=== PATIENT | male | born 1935 | race Caucasian/White ===

== ENCOUNTER 2023-02-09 18:01 | Outpatient (CLI) | payer OTHER, SELFPAY | END 2023-02-09 18:02 | disposition home or self-care (01) | LOC: AMB 02-10 19:51 | PROVIDERS: Visit Provider Family Medicine | DX: R53.1 Weakness (principal) | CPT/HCPCS: A0998 ==

== ENCOUNTER 2023-02-27 14:45 | Emergency (ER) | payer OTHER, SELFPAY ==
[2023-02-27] VITALS (13 sets, daily range): BP systolic 141–228; BP diastolic 81–96; PULSE 62–72; TEMP 35.9; O2SAT 88–98; BMI 38.7
--- NOTE | 2023-02-27 15:39 | ED.CHESTPAIN ---
HPI - Chest Pain General Chief Complaint: Chest Pain Stated Complaint: Chest pain Time Seen by Provider: 02/27/23 15:17 History of Present Illness HPI narrative: This 87-year-old male comes in reporting some episodes of mild left anterior chest discomfort occurring over the past couple weeks. These episodes last for 10 or 15 minutes and are not related to exertion. He does not report any nausea, vomiting, shortness of breath, or diaphoresis. He does have a history of an open heart surgery that occurred a couple years ago. He did not specify what was done in this surgery. He also has a history of prostate cancer more than 10 years ago and now has recurred a couple years ago with elevated PSA results. He has had another round of radiation therapy. The patient does report some vertigo symptoms and weakness that is chronic over almost a couple decades of time. He is able to get up and ambulate but states if he is down on the floor he would not have enough strength to get to walk. He had been on several medicines related to his heart and recently restarted carvedilol just 2 days ago. He is taking 6.25 mg twice daily. He states that he has felt some brief episodes of lightheadedness unrelated to these episodes of chest discomfort. Related Data Home Medications Medication Instructions Recorded Confirmed amlodipine 5 mg tablet 5 mg PO BID 02/27/23 02/27/23 carvedilol 6.25 mg tablet 6.25 mg PO BID 02/27/23 02/27/23 glimepiride 4 mg tablet 4 mg PO BID 02/27/23 02/27/23 insulin glargine 100 unit/mL (3 unit subcut 02/27/23 mL) subcutaneous pen (Lantus Solostar U-100 Insulin) metformin 500 mg tablet,extended 1,000 mg PO BID 02/27/23 02/27/23 release 24 hr rosuvastatin 10 mg tablet 10 mg PO QPM 02/27/23 02/27/23 Allergies Allergy/AdvReac Type Severity Reaction Status Date / Time No Known Drug Allergies Allergy Verified 02/27/23 14:59 Review of Systems Status of ROS Reports: 10 or more systems reviewed and unremarkable except as noted in History and below Narrative Constitutional: No fevers, no weight gain or loss. Eyes: No discharge. No vision changes. HENT: No congestion, no sore throat, no ear pain. Cardiovascular: Chest discomfort episodes as described above with some associated palpitations. Respiratory: No shortness of breath, no wheezes, no cough. Gastrointestinal: No abdominal pain, no vomiting, no diarrhea. Genitourinary: No dysuria, no hematuria. Musculoskeletal: Normal range of motion. Skin: No rashes, no pruritis. Neurological: No dizziness, weakness, sensory change, speech change. Endo/Heme/Allergies: No bruising or bleeding. No polydipsia. Pysch: no suicidality, no anxiety, no insomnia. All other systems reviewed and are negative. PFSH PFS Social History Smoking Status: Never smoker How often do you have a drink containing alcohol: monthly or less How often do you have six or more drinks on one occasion: Never AUDIT-C Alcohol total score: 1 Non-prescribed substance use: denies use Exam Narrative Exam Narrative: Constitutional: Well-developed, well-nourished, no acute distress. HEENT: Normocephalic, atraumatic. Neck: Normal range of motion. Nontender. Supple. Heart: Regular. No murmurs. Normal rate. Intact distal pulses. Lungs: Clear to auscultation. No chest discomfort. No wheezes, rhonchi, or rales. Abdomen: Normal bowel sounds. Nontender. No rebound tenderness. Genitalia: Deferred. Back: No midline tenderness. Normal range of motion. Extremities: Normal range of motion. No injury. Skin: Intact. No rash. Warm. No erythema or pallor. Neurologic: No altered sensation. No weakness. Alert and oriented. Psychiatric: No suicidality. No anxiety or depression. No insomnia. Nursing notes and vitals signs are reviewed. Const Vital Signs, click to edit/add: Vital Signs - 24 hr 02/27/23 15:00 02/27/23 15:20 02/27/23 15:21 Temperature 96.6 F L Pulse Rate 66 64 Pulse Rate [Pulse Oximeter] 68 Blood Pressure 195/83 H Blood Pressure [Right Upper Arm] 228/93 H Pulse Oximetry 98 97 97 Oxygen Delivery Method Room Air 02/27/23 15:30 02/27/23 15:32 02/27/23 15:33 Temperature Pulse Rate 66 65 64 Pulse Rate [Pulse Oximeter] Blood Pressure 185/81 H Blood Pressure [Right Upper Arm] Pulse Oximetry 97 97 97 Oxygen Delivery Method 02/27/23 16:02 02/27/23 16:04 02/27/23 16:20 Temperature Pulse Rate 65 72 Pulse Rate [Pulse Oximeter] Blood Pressure 193/96 H Blood Pressure [Right Upper Arm] Pulse Oximetry 97 95 Oxygen Delivery Method 02/27/23 16:30 02/27/23 16:45 02/27/23 17:00 Temperature Pulse Rate 64 62 63 Pulse Rate [Pulse Oximeter] Blood Pressure Blood Pressure [Right Upper Arm] Pulse Oximetry 97 96 88 Oxygen Delivery Method 02/27/23 17:01 Temperature Pulse Rate 67 Pulse Rate [Pulse Oximeter] Blood Pressure 141/87 H Blood Pressure [Right Upper Arm] Pulse Oximetry 96 Oxygen Delivery Method Course Vital Signs Vital signs: Initial Vital Signs Temperature 96.6 F L 02/27/23 15:00 Temperature Source Temporal Artery Scan 02/27/23 15:00 Pulse Rate 68 02/27/23 15:00 Blood Pressure 228/93 H 02/27/23 15:00 Blood Pressure Mean 138 H 02/27/23 15:00 Blood Pressure Position Sitting 02/27/23 15:00 Pulse Oximetry 98 02/27/23 15:00 Oxygen Delivery Method Room Air 02/27/23 15:00 Vital Signs Temperature 96.6 F L 02/27/23 15:00 Pulse Rate 68 02/27/23 15:00 Blood Pressure 228/93 H 02/27/23 15:00 Pulse Oximetry 98 02/27/23 15:00 Oxygen Delivery Method Room Air 02/27/23 15:00 Temperature 96.6 F L 02/27/23 15:00 Pulse Rate 67 02/27/23 17:01 Blood Pressure 141/87 H 02/27/23 17:01 Pulse Oximetry 96 02/27/23 17:01 Oxygen Delivery Method Room Air 02/27/23 15:00 MDM - Chest Pain MDM Narrative Medical decision making narrative: This patient comes in reporting some random episodes of chest discomfort over the past few weeks. He does have a history of heart disease and did have an open heart procedure a few years ago. He does not report any exertional symptoms in currently he is feeling normal. EKG and vital signs returned with reassuring findings. Lab results also returned with a troponin at 0.0. He does have history of prostate cancer that was treated about 10 years ago and now his PSA is elevated. Two months ago his PSA was at 5 and it was checked today and returns at 11.7. I advised the patient to follow-up with his oncologist with this result. He states that his next appointment is a couple months from now. I recommended a phone call tomorrow to make his oncologist aware of this result. The patient is okay to be discharged home to continue current plans otherwise. Lab Data Labs: Lab Results 02/27/23 Range/Units 15:53 WBC 4.23 L (4.50-11.00) K/uL RBC 4.26 L (4.30-5.90) m/uL Hgb 13.5 (13.5-17.5) gm/dL Hct 41.4 (37.0-53.0) % MCV 97 (80-100) fL MCH 32 (26-34) pg MCHC 33 (32-36) gm/dL RDW Coeff of Antonio 12.7 (11.5-15.5) % Plt Count 140 (140-440) K/uL Neut % (Auto) 72.4 H (42.0-72.0) % Lymph % (Auto) 15.8 L (20-44) % Fountain % (Auto) 9.5 (0.0-11.0) % Eos % (Auto) 1.9 (0.0-7.0) % Baso % (Auto) 0.2 (0.0-3.0) % Neut # (Auto) 3.10 (1.7-7.0) K/uL Lymph # (Auto) 0.70 L (0.90-2.90) K/uL Fountain # (Auto) 0.40 (0.00-0.90) K/UL Eos # (Auto) 0.10 (0.00-0.50) K/uL Baso # (Auto) 0.00 (0.00-0.30) K/uL Sodium 139 (135-149) mmol/L Potassium 4.3 (3.6-5.1) mmol/L Chloride 103 (96-114) mmol/L Carbon Dioxide 30 (20-32) mmol/L BUN 19 (7-30) mg/dL Creatinine 0.8 (0.5-1.5) mg/dL Estimated Creat Clear 54.75 Estimated GFR 86 ml/min Glucose 291 H (60-115) mg/dL Calcium 8.7 (8.4-10.6) mg/dL PSA Diagnostic 11.70 H (0.10-4.00) ng/mL POC Troponin I 0.00 L (0.01-0.04) ng/ml ECG Data Attestation: I personally reviewed and interpreted this ECG as follows: Interpretation: Normal sinus rhythm. Rate is 66 beats per minute. There are no specific ST or T-wave abnormalities. Discharge Plan Discharge Clinical Impression: Atypical chest pain Patient Disposition: Home w/ Parent or Adult Condition: Unchanged Additional Instructions: Follow-up with oncologist regarding elevated PSA. Continue current plans otherwise. Follow up with MD or return if worsening. Prescriptions: No Action carvedilol 6.25 mg tablet 6.25 mg PO BID amlodipine 5 mg tablet 5 mg PO BID glimepiride 4 mg tablet 4 mg PO BID metformin 500 mg tablet extended release 24 hr 1,000 mg PO BID rosuvastatin 10 mg tablet 10 mg PO QPM insulin glargine [Lantus Solostar U-100 Insulin] 100 unit/mL (3 mL) insulin pen subcut Follow Up/Referrals: Provider,Not a Local [Primary Care Provider] - Stand Alone Forms: Meddle Info Instructions
[2023-02-27 16:20] LABS: Basophils Percent Auto 0.2 % (0.0-3.0); Eosinophils Percent Auto 1.9 % (0.0-7.0); Hematocrit 41.4 % (37.0-53.0); Hemoglobin* 13.5 gm/dL (13.5-17.5); Immature Granulocytes Pct Auto 0.2 %; Lymphocytes Percent Auto 15.8 % (20-44); Mean Corpuscular HGB Conc 33 gm/dL (32-36); Mean Corpuscular Hemoglobin 32 pg (26-34); Mean Corpuscular Volume 97 fL (80-100); Monocytes Percent Auto 9.5 % (0.0-11.0); Neutrophils Percent Auto 72.4 % (42.0-72.0); Platelet Count* 140 K/uL (140-440); RDW Coefficient of Variation % 12.7 % (11.5-15.5); Red Blood Count 4.26 m/uL (4.30-5.90); White Blood Count* 4.23 K/uL (4.50-11.00)
[2023-02-27 16:35] LABS: Chloride* 103 mmol/L (96-114); Potassium* 4.3 mmol/L (3.6-5.1); Sodium* 139 mmol/L (135-149)
[2023-02-27 16:38] LABS: Blood Urea Nitrogen* 19 mg/dL (7-30); Carbon Dioxide* 30 mmol/L (20-32); Creatinine* 0.8 mg/dL (0.5-1.5); Est. Creatinine Clearance* 54.75; Estimated Glomerular Filt Rate 86 ml/min; Glucose* 291 mg/dL (60-115)
[2023-02-27 16:39] LABS: Calcium* 8.7 mg/dL (8.4-10.6)
[2023-02-27 16:41] LABS: Slide Review Reflex No
== END 2023-02-27 18:02 | disposition home or self-care (01) ==
PROVIDERS: Emergency Provider Emergency Medicine Emergency Medical Services
DX: R07.89 Other chest pain (principal)
CPT/HCPCS: 36415; 80048; 84153; 84484; 85025; 93005; 99284

== ENCOUNTER 2023-05-07 00:25 | Outpatient (CLI) | payer OTHER, SELFPAY | END 2023-05-07 00:26 | disposition home or self-care (01) | LOC: AMB 05-08 18:13 | PROVIDERS: PCP Student in an Organized Health Care Education/Training Program; Visit Provider Family Medicine | DX: R53.1 Weakness (principal) | CPT/HCPCS: A0998 ==

== ENCOUNTER 2023-06-27 13:30 | Outpatient (RCR) | payer OTHER, SELFPAY ==
[2023-04-12 16:35] LABS: Sex Hormone Binding Globulin 27 nmol/L (19-76); Testosterone, Adult Male 224 ng/dL (300-720); Testosterone, Free Calculation 44 pg/mL (47-244); Testosterone, Percentage Free 1.9 % (1.6-2.9)
--- NOTE | 2023-04-26 13:39 | ONC.NURNOTE ---
Testosterone, PSA and paraneoplastic panel reviewed by Dr Lira recommendation per her dictation message left on patients voice mail to call for follow up
--- NOTE | 2023-04-30 12:49 | ONC.NURNOTE ---
Paraneoplastic Panel, PSA and testosterone reviewed by Dr Lira This short story writer phoned patient with results and reviewed Dr Lira's recommendation per her note. Patient to speak with his family and call this office back with decision on if interested in pursing firmagon. If firmagon, then RTC prior to 2nd injection, and PSA prior to 3rd injection If he opts out of treatment, plan RTC in 3-4 months
--- NOTE | 2023-05-13 11:38 | ONC.NURNOTE ---
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 is he risking less of a treatment response to wait until he is symptomatic? this question will need to go to the provider
[2023-06-26 13:18] LABS: Basophils Absolute Auto 0.02 K/uL (0.00-0.30); Basophils Percent Auto 0.4 % (0.0-3.0); Eosinophils Absolute Auto 0.13 K/uL (0.00-0.50); Eosinophils Percent Auto 2.7 % (0.0-7.0); Hematocrit 40.7 % (37.0-53.0); Hemoglobin* 13.4 gm/dL (13.5-17.5); Immature Granulocytes Abs Auto 0.01 K/uL (0.00-0.30); Immature Granulocytes Pct Auto 0.2 %; Lymphocytes Percent Auto 15.5 % (20-44); Mean Corpuscular HGB Conc 33 gm/dL (32-36); Mean Corpuscular Hemoglobin 32 pg (26-34); Mean Corpuscular Volume 97 fL (80-100); Monocytes Percent Auto 9.2 % (0.0-11.0); Neutrophils Absolute Auto 3.43 K/uL (1.7-7.0); Platelet Count* 166 K/uL (140-440); RDW Coefficient of Variation % 12.8 % (11.5-15.5); Red Blood Count 4.21 m/uL (4.30-5.90); White Blood Count* 4.77 K/uL (4.50-11.00)
[2023-06-26 13:21] LABS: Slide Review Reflex No
[2023-06-26 13:33] LABS: Albumin* 3.8 g/dL (3.3-5.0)
[2023-06-26 13:34] LABS: Chloride* 104 mmol/L (96-114); Potassium* 4.6 mmol/L (3.6-5.1); Sodium* 138 mmol/L (135-149)
[2023-06-26 13:36] LABS: Anion Gap 5 mEq/L (7-15); Aspartate Amino Transferase* 34 U/L (12-35); Bilirubin Total* 0.5 mg/dL (0.1-1.5); Carbon Dioxide* 29 mmol/L (20-32); Estimated Glomerular Filt Rate 73 ml/min
[2023-06-26 13:37] LABS: Alanine Aminotransferase* 29 U/L (4-50); Alkaline Phosphatase* 74 U/L (40-150); Blood Urea Nitrogen* 21 mg/dL (7-30); Glucose* 263 mg/dL (60-115); Total Protein* 6.6 g/dL (6.0-8.3)
[2023-06-28 19:37] LABS: Calcium* 8.8 mg/dL (8.4-10.6)
== END 2023-10-08 23:59 | disposition home or self-care (01) ==
LOC: CCIC 13:30
PROVIDERS: Clinical Nurse Specialist; PCP Student in an Organized Health Care Education/Training Program; Referring Provider Student in an Organized Health Care Education/Training Program; Visit Provider Internal Medicine Hematology & Oncology
DX: C61 Malignant neoplasm of prostate (principal); C77.9 Secondary and unspecified malignant neoplasm of lymph node, unspecified; R29.898 Other symptoms and signs involving the musculoskeletal system; R26.81 Unsteadiness on feet
CPT/HCPCS: 36415; 80053; 84153; 84270; 84402; 84403; 85025; 99202; 99205; 99212; 99214

== ENCOUNTER 2023-10-05 21:17 | Outpatient (CLI) | payer OTHER, SELFPAY | END 2023-10-05 21:18 | disposition home or self-care (01) | LOC: AMB 10-08 11:57 | PROVIDERS: PCP Student in an Organized Health Care Education/Training Program; Visit Provider Emergency Medicine Emergency Medical Services | DX: R53.1 Weakness (principal) | CPT/HCPCS: A0998 ==

== ENCOUNTER 2023-10-07 06:58 | Outpatient (CLI) | payer OTHER, SELFPAY | END 2023-10-07 06:59 | disposition home or self-care (01) | LOC: AMB 10-09 09:19 | PROVIDERS: PCP Student in an Organized Health Care Education/Training Program; Visit Provider Family Medicine | DX: R53.1 Weakness (principal) | CPT/HCPCS: A0998 ==

== ENCOUNTER 2023-11-18 14:00 | Outpatient (RCR) | payer OTHER, SELFPAY ==
--- NOTE | 2023-10-22 12:48 | PT.OPEX ---
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 Per medical chart Pt has significant comorbidities including metastatic prostate cancer, type 2 diabetes, functionally limiting lightheadedness/dizziness, and progressive lower extremity muscle weakness, He has previously undergone multiple neurologic evaluations with no firm diagnosis as to why he has had progressive lower extremity weakness over the last 10 years. 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 Mobility: difficulty walking independent, does use cane, uses scooter 80% of time. supine to sit independently, independent between bathroom and bedroom with SPC and dresser Difficulty standing, for prolonged period of time > 1 minute. Significant difficulty getting up off the ground, when he falls calls EMT. PMH: see medical chart Social History: No stairs to enter, small lip to enter, stairs to go upstairs, all needs met on first floor. lives with Girlfriend, Aditi , negotiates with scooter. Independent with all ADLs and IADLs although does not shower , bathes from sink Current Work Status Retired Preferred Name Tom Precautions Weight Bearing Status Full Weight Bearing Therapy Limitations/Systems Review Not Limited Objective Other/Pertinent Objective Manual muscle testing: Hip flexion: 3/5 L , 3/5 R Hip abduction: 3/5 L , 3/5 R Hip adduction: 3/5 L , 3/5 R Knee extension: 3/5 L , 3+/5 R Knee flexion: 3/5 L , 3/5 R Ankle DF: 4/5 L , 4/5 R Ankle PF: 2+/5 L , 2+/5 R ( seated Sensation/Reflexes: Sensation: diminished light touch sensation bilaterally Babinski: normal MCTSIB: Eyes open, firm: 30 seconds Eyes open foam: 15 seconds Eyes closed, firm: 30 seconds with significant sway Eyes closed, foam: 9 seconds with mod A to regain balance TUG: deferred Assessment Assessment/Impression Patient is a 87 year old with complaints of impaired balance and impaired standing and walking tolerance. Patient demonstrates impaired LE strength, impaired balance sensory integration, and decreased light touch sensation in bilateral feet. The impairments impact the patients transfers, standing tolerance, home and community ambulation and participation in ADLs and IADLs. Patient will benefit from skilled physical therapy to address the impairments and activity limitations listed above. Prognostic factors include chronic nature of symptoms and high number of comorbidities. Primary Functional Limitations transfers, standing tolerance, home and community ambulation and participation in ADLs and IADLs. Plan of Care Rehabilitation Potential Fair Physical Therapy Goals [facility] goals 01/16/24 1. Patient will demonstrate 5 time sit to stand with use of UE support in 11 seconds or less in order to demonstrate improved LE strength and decreased risk for falls. 2. Patient will demonstrate timed up and go in 13 seconds with walker or less in order to demonstrate decreased risk for falls and improved safety with ambulation. 3. Patient will demonstrate independence with HEP in order to independently manage condition at home. 4. Patient will tolerate standing >4 minutes with no LOB in order to perform standing grooming and dressing ADLs. Coordination/Communication With Referral Source Treatment Plan/Direct Interventions Gait Training,Joint Mobilization,Manual Therapy, Neuromuscular Re-ed,Self-Care/ Home Management,Therapeutic Activities,Therapeutic Exercises Frequency/Duration 1x/week for 12 weeks Patient Will Be Discharged From Therapy Completion of LTG(s),Skills Plateau,Independent w/HEP Evaluation Billing Untimed Code Treatment Minutes 30 Complexity Moderate Certification Information Initial Certification Date 10/18/23 Ending Certification Date 01/15/24 Provider Signature Shows Agreement With POC & Medical Necessity Physician Signature & Date Requested Please Sign/Date Here Physician Comment/Change : Physician NPI Number #
== END 2024-01-14 10:36 | disposition home or self-care (01) ==
PROVIDERS: PCP Student in an Organized Health Care Education/Training Program; Visit Provider Physician Assistant
DX: C61 Malignant neoplasm of prostate (principal); C77.1 Secondary and unspecified malignant neoplasm of intrathoracic lymph nodes; R29.898 Other symptoms and signs involving the musculoskeletal system; R26.81 Unsteadiness on feet; Z51.89 Encounter for other specified aftercare
CPT/HCPCS: 97110; 97112; 97162

== ENCOUNTER 2024-01-19 00:56 | Outpatient (CLI) | payer OTHER, SELFPAY | END 2024-01-19 00:57 | disposition home or self-care (01) | LOC: AMB 01-20 09:25 | PROVIDERS: PCP Student in an Organized Health Care Education/Training Program; Visit Provider Family Medicine | DX: R53.1 Weakness (principal) | CPT/HCPCS: A0998 ==

== ENCOUNTER 2024-01-20 09:00 | Outpatient (RCR) | payer OTHER, SELFPAY ==
--- NOTE | 2023-10-18 12:56 | ONC.NURNOTE ---
Physical Therapy referral faxed to [facility] and [facility]. Palliative Care referral faxed to [facility] in [place]. Pt notified.
--- NOTE | 2024-01-31 15:02 | ONC.NURNOTE ---
Followed up with patient to see if he had made any decisions and it sounds like at this time he is unsure what to do noting he wants to get better and would like something to help him but for now he has no pain and he feels fine and plans to go fishing in 2 weeks. Let patient know (along with friend Karen in background) that we will wait to hear from him for what is next. No plans for hospice at this time
--- NOTE | 2024-04-02 09:46 | ONC.NURNOTE ---
Received a referral from [facility] PCP for patient to be seen. He has been seen by our medical oncologist in January and discussion was hospice. He wanted time to think and never called [facility] back with an update. Fire Hose Curer discussed this with referral department and they noted that patient has a referral for hospice and appears to be enrolled. Fire Hose Curer noted that usually seeing oncology while enrolled in hospice is not covered. Fire Hose Curer called patient to clarify his desire. He notes that he does not want agressive treatment and wants to be kept comfortable. He was notified that usually seeing oncology while enrolled in hospice is not covered. He was told that is he would like to see oncology, he should contact his hospice group to see if this would be covered and then he can call our office to schedule this in the future if needed/wanted.
== END 2024-04-14 23:59 | disposition home or self-care (01) ==
LOC: CCIC 09:00
PROVIDERS: Internal Medicine Hematology & Oncology; PCP Student in an Organized Health Care Education/Training Program; Referring Provider Student in an Organized Health Care Education/Training Program; Visit Provider Physician Assistant
DX: C61 Malignant neoplasm of prostate (principal); C77.1 Secondary and unspecified malignant neoplasm of intrathoracic lymph nodes; R29.898 Other symptoms and signs involving the musculoskeletal system; R26.81 Unsteadiness on feet
CPT/HCPCS: 36415; 84153; 99213; 99215; G0463

== ENCOUNTER 2024-03-23 10:40 | Emergency (ER) | payer OTHER, SELFPAY ==
[2024-03-23] VITALS (34 sets, daily range): BP systolic 154–170; BP diastolic 75–84; PULSE 72–92; RESP 18; TEMP 36.2; O2SAT 91–98; BMI 37.3
--- NOTE | 2024-03-23 11:22 | US_ITS ---
Patient: JESIKA CORDOVA Facility:?[facility] Patient ID:?[id number] Site Patient ID:?[id number]. Site :?[id number] Study:?US-Extremity Left LUE VENOUS-03/23/2024 12:54:00 PM Ordering Physician:?RAUL SMITH M.D. Final Report: INDICATION: Pain, no injury, history of cancer. COMPARISON: None. TECHNIQUE: Grayscale, color Doppler, and duplex Doppler of the left upper extremity deep and superficial venous systems. FINDINGS: Laterality: Left Examined veins: internal jugular, subclavian, axillary, brachial, ulnar, radial basilic, cephalic The examined veins are patent with normal grayscale appearance and normal compressibility where anatomically feasible. Normal color Doppler flow. Flattened venous waveforms on duplex Doppler ultrasound with normal augmentation. IMPRESSION: 1. No left upper extremity deep vein thrombosis. 2. Somewhat flattened venous waveforms may reflect central stenosis. Recommend assessing history for longstanding venous catheters/pacemaker or mediastinal radiation. Dictated by Rissa López MD @ 03/23/2024 1:12:13 PM Signed by:?Rissa López MD @03/23/2024 1:12:13 PM (Electronic Signature)
--- NOTE | 2024-03-23 11:24 | XR_ITS ---
Patient: JESIKA CORDOVA Facility:?[facility] Patient ID:?[id number] Site Patient ID:?[id number]. Site :?[id number] Study:?XRay-Shoulder Left 3 VIEWS-03/23/2024 1:40:40 PM Ordering Physician:YANNA Final Report: Indication: Pain, no injury Technique: Three views of the left shoulder. Comparison: None. Findings: No acute displaced fracture or malalignment. [id number] degenerative changes of the glenohumeral and acromioclavicular joints. Calcification at the expected insertion of the supraspinatus tendon. Impression: No acute displaced fracture or malalignment. 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 Dictated by Roberto Jacobs MD @ 03/23/2024 1:54:27 PM Signed by:?Roberto Jacobs MD @03/23/2024 1:54:27 PM (Electronic Signature)
--- NOTE | 2024-03-23 11:25 | ED_ITS ---
HPI - General Adult General Date Seen: 03/23/24 Chief complaint: Chest Pain Stated complaint: swollen left arm/hand Time Seen by Provider: 03/23/24 11:01 Source: patient, family, RN notes reviewed and old records reviewed Mode of arrival: ambulatory Limitations: no limitations History of Present Illness HPI narrative: Patient is a an 88-year-old male here with his son and his domestic partner for evaluation primarily of pain in his left shoulder and swelling in his left arm. He notes that this started yesterday, out of the blue. Denies injury. He was initially worried that this might be related to his prostate cancer he, as he was told that he could get bone cancer related to this. However, he has not had any shoulder pain prior to yesterday. Today he noted that the left hand was swelling and since then has noted that the arm seems to be swollen as well. He says he has significant pain with any attempt to move the left shoulder. He is able to move the elbow without difficulty. He has not noted any significant redness, fevers or other systemic complaints. He does note almost as an aside that he had some chest pain yesterday for about 6 hours, this was mild and he di d not make a whole lot of it. It sounds like he gets chest pain every once in a while. He does not have difficulty breathing, has not had fever, cough, pleuritic pain. He does have swelling in his legs at baseline although he says it has generally been better since he started watching salt intake. He denies prior history of DVT or PE, he is not anticoagulated. Does not smoke. Related Data Home Medications Medication Instructions Recorded Confirmed amlodipine 5 mg tablet 5 mg PO BID 02/27/23 03/23/24 glimepiride 4 mg tablet 4 mg PO BID 02/27/23 03/23/24 insulin glargine 100 unit/mL (3 unit subcut 02/27/23 01/20/24 mL) subcutaneous pen (Lantus Solostar U-100 Insulin) metformin 500 mg tablet,extended 1,000 mg PO BID 02/27/23 03/23/24 release 24 hr rosuvastatin 10 mg tablet 10 mg PO QPM 02/27/23 03/23/24 carvedilol 6.25 mg tablet 3.125 mg PO BID 04/11/23 03/23/24 semaglutide 0.25 mg or 0.5 mg (2 mg subcut 01/20/24 01/20/24 mg/3 mL) subcutaneous pen injector (Ozempic) Allergies Allergy/AdvReac Type Severity Reaction Status Date / Time No Known Drug Allergies Allergy Verified 03/23/24 15:36 Review of Systems Status of ROS: Reports: 10 or more systems reviewed and unremarkable except as noted in History and below [facility] Medical History Gait instability ?R26.81 - Unsteadiness on feet (ICD-10) Leg weakness, bilateral ?R29.898 - Other symptoms and signs involving the musculoskeletal system (ICD-10) 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 In general, an alert, nontoxic male, breathing easily. Head: Normocephalic, atraumatic. Eyes: Pupils are equal reactive. Extraocular movements are full. Conjunctivae are normal. ENT: Mucous membranes are moist. Neck: Supple without lymphadenopathy. Heart: Regular rate and rhythm. No murmur or rub. Lungs: Clear bilaterally. No increased work of breathing, crackles or wheezes. Abdomen: Obese, soft. Nontender to palpation. Extremities: Pulses are intact. He has edema in bilateral lower extremities, left greater than right. There is no erythema or calf tenderness. On the upper extremities, he does appear to have edema of the left upper extremity, he has large extremities in general so I did measure and the left upper extremity measures 1-2 cm greater in general circumference compared to the right. There is no erythema. He will allow gentle range of motion of the left shoulder without significant pain, though I did not do full range of motion. No rashes, no warmth. Distal CMS intact. Neurologic: Patient is alert and oriented to person and place. Speech is fluent. Face is symmetric. Moves all extremities equally. Affect: Normal. Skin: Warm and dry. Well perfused. Const: Vital Signs, click to edit/add: Vital Signs - 24 hr 03/23/24 11:00 03/23/24 11:01 03/23/24 11:06 Temperature 97.1 F L Pulse Rate 84 72 Pulse Rate [Pulse Oximeter] 79 Respiratory Rate 18 Blood Pressure 163/75 H Blood Pressure [Ri ght Upper Arm] 163/75 H Pulse Oximetry 97 98 Oxygen Delivery Me thod Room Air 03/23/24 11:15 03/23/24 11:32 03/23/24 11:33 Temperature Pulse Rate 74 77 Pulse Rate [Pulse Oximeter] Respiratory Rate Blood Pressure 154/76 H Blood Pressure [Ri ght Upper Arm] Pulse Oximetry 97 96 Oxygen Delivery Me thod 03/23/24 11:45 03/23/24 12:00 03/23/24 12:05 Temperature Pulse Rate 77 78 72 Pulse Rate [Pulse Oximeter] Respiratory Rate Blood Pressure Blood Pressure [Ri ght Upper Arm] Pulse Oximetry 95 96 95 Oxygen Delivery Me thod 03/23/24 12:15 03/23/24 12:30 03/23/24 12:34 Temperature Pulse Rate 76 75 75 Pulse Rate [Pulse Oximeter] Respiratory Rate Blood Pressure Blood Pressure [Ri ght Upper Arm] Pulse Oximetry 95 96 96 Oxygen Delivery Me thod 03/23/24 12:45 03/23/24 13:00 03/23/24 13:02 Temperature Pulse Rate 73 74 73 Pulse Rate [Pulse Oximeter] Respiratory Rate Blood Pressure 166/84 H Blood Pressure [Ri ght Upper Arm] Pulse Oximetry 95 97 97 Oxygen Delivery Me thod 03/23/24 13:03 03/23/24 13:27 03/23/24 13:30 Temperature Pulse Rate 77 81 80 Pulse Rate [Pulse Oximeter] Respiratory Rate Blood Pressure Blood Pressure [Ri ght Upper Arm] Pulse Oximetry 97 98 97 Oxygen Delivery Me thod 03/23/24 13:45 03/23/24 14:00 03/23/24 14:15 Temperature Pulse Rate 86 85 83 Pulse Rate [Pulse Oximeter] Respiratory Rate Blood Pressure Blood Pressure [Ri ght Upper Arm] Pulse Oximetry 97 97 94 Oxygen Delivery Me thod 03/23/24 14:30 03/23/24 14:31 03/23/24 14:31 Temperature Pulse Rate 81 81 81 Pulse Rate [Pulse Oximeter] Respiratory Rate Blood Pressure 156/81 H 156/81 H Blood Pressure [Ri ght Upper Arm] Pulse Oximetry 95 97 97 Oxygen Delivery Me thod 03/23/24 14:31 03/23/24 14:45 03/23/24 15:00 Temperature Pulse Rate 81 84 83 Pulse Rate [Pulse Oximeter] Respiratory Rate Blood Pressure 156/81 H Blood Pressure [Ri ght Upper Arm] Pulse Oximetry 97 96 95 Oxygen Delivery Me thod 03/23/24 15:02 03/23/24 15:15 03/23/24 15:30 Temperature Pulse Rate 86 90 82 Pulse Rate [Pulse Oximeter] Respiratory Rate Blood Pressure 170/79 H Blood Pressure [Ri ght Upper Arm] Pulse Oximetry 91 98 97 Oxygen Delivery Me thod 03/23/24 15:47 03/23/24 16:00 03/23/24 16:05 Temperature Pulse Rate 87 87 91 Pulse Rate [Pulse Oximeter] Respiratory Rate Blood Pressure Blood Pressure [Ri ght Upper Arm] Pulse Oximetry 97 97 96 Oxygen Delivery Me thod Documenting provider has reviewed patient's vital signs: yes Course Course ED Course: Patient had an EKG following my initial evaluation, this showed a normal sinus, ventricular rate of 78. He corrected QT of [address] segment changes. He does have a Q-wave in lead 3, small S-wave in lead 1 and flat T-wave in lead 3. I will order a troponin given chest pain yesterday, though it seems that his primary issue is this problem with his left arm. I do not see significant effusion in the shoulder, there is no erythema or warmth to suggest a septic joint. I do not see evidence of cellulitis in the arm as of this time. I have ordered an ultrasound to look for possible DVT as well as an x-ray to evaluate for bony pathology of the shoulder. Lab and x-ray pending at this time. Labs are notable for a normal white blood cell count, diff shows a left shift with 84% neutrophils. His INR was 0.92, his D-dimer was elevated at 3.6. Doppler of his left upper extremity was negative by radiology report for DVT. X-ray of the left shoulder by my review shows degenerative changes, no fracture dislocation, read as follows by Radiology:Findings: No acute displaced fracture or malalignment. [id number] degenerative changes of the glenohumeral and acromioclavicular joints. Calcification at the expected insertion of the supraspinatus tendon. Impression: No acute displaced fracture or malalignment. 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 Given negative venous Doppler, chest pain yesterday, elevated D-dimer I did recommend we do a CT of the chest. Read as follows by Radiology:FINDINGS: Cardiovascular structures: CT pulmonary angiogram demonstrates adequate opacification of the pulmonary arteries. No evidence of pulmonary embolus. Aortic atherosclerosis. Thoracic aorta is normal in caliber. Coronary artery calcifications. Heart size is within normal limits. Mediastinum and demond: Extensive lymphadenopathy in the paratracheal, prevascular and para-aortic regions. For example, a lower right paratracheal node on image 78 of series 4 measures 4.3 x 4.5 cm. Lymphadenopathy causes narrowing of the SVC. Lungs: No pneumothorax. Central airways are patent. Mild motion artifact with bilateral scarring and atelectasis. Lungs are otherwise clear. Pleura and pericardium: No effusions. Chest wall and axilla: Bilateral supraclavicular lymphadenopathy, left greater than right. No chest wall venous collaterals. Bones: Degenerative changes of the spine. Suspected bone island in the C7 vertebra. No acute or suspicious osseous abnormality. Upper abdomen: Bilateral retrocrural lymphadenopathy measuring up to 2 x 2.1 cm on image 166 of series 4. Cholelithiasis. Left renal cyst. IMPRESSION: 1. No evidence of pulmonary embolus. 2. Extensive lymphadenopathy involving the mediastinum, bilateral supraclavicular and retrocrural regions, consistent with malignancy/metastatic disease. Tissue sampling is recommended. At some point, CT of the abdomen and pelvis and/or PET-CT should be considered to evaluate for additional sites of involvement. 3. Mediastinal lymphadenopathy causes narrowing of the SVC. Within the limitations of contrast bolus timing, there is no evidence of definite occlusion. Review of his records shows that the mediastinal lymphadenopathy is not a new finding, it is referenced in his oncology notes, but we do not have prior imaging here. Discussed all this with the patient, his female friend, and his son. We talked about hospice care, what that means, what the process is to some degree. He will give that further thought. I was not able to talk with anybody with Oncology about his care as they were ready gone for the day. He has an camilla ointment with his primary doctor on Saturday, he will keep that. I am prescribing oxycodone for him if he needs that for pain control for his shoulder. Discussed that the x-ray today does not show any obvious a signs of cancer, but other tests such as MRI or PET scan would be more sensitive in determining if he has any bony metastases. Return for worsening, if he develops significant redness or worsening pain in the left upper extremity, new symptoms such as fever, shortness of breath etcetera. Vital Signs Vital signs: Initial Vital Signs Pulse Rate 84 03/23/24 11:00 Vital Signs Pulse Rate 84 03/23/24 11:00 Temperature 97.1 F L 03/23/24 11:06 Pulse Rate 91 03/23/24 16:05 Respiratory Rate 18 03/23/24 11:06 Blood Pressure 170/79 H 03/23/24 15:02 Pulse Oximetry 96 03/23/24 16:05 Oxygen Delivery Method Room Air 03/23/24 11:06 Medications Administered Medications: Discontinued Medications Generic Name Dose Route Start Last Admin Trade Name Freq PRN Reason Stop Dose Admin Morphine Sulfate 4 mg 03/23/24 11:22 03/23/24 12:50 Morphine 4 Mg/Ml Inj IVP 03/23/24 11:23 4 mg ONCE ONE Administration Medical Decision Making Lab Data Labs: Lab Results 03/23/24 Range/Units 12:15 WBC 7.37 (4.50-11.00) K/uL RBC 4.57 (4.30-5.90) m/uL Hgb 14.0 (13.5-17.5) gm/dL Hct 43.1 (37.0-53.0) % MCV 94 (80-100) fL MCH 31 (26-34) pg MCHC 33 (32-36) gm/dL RDW Coeff of Antonio 13.3 (11.5-15.5) % Plt Count 180 (140-440) K/uL Neut % (Auto) 83.7 H (42.0-72.0) % Lymph % (Auto) 8.4 L (20-44) % Bacon % (Auto) 6.8 (0.0-11.0) % Eos % (Auto) 0.9 (0.0-7.0) % Baso % (Auto) 0.1 (0.0-3.0) % Neut # (Auto) 6.20 (1.7-7.0) K/uL Lymph # (Auto) 0.60 L (0.90-2.90) K/uL Bacon # (Auto) 0.50 (0.00-0.90) K/UL Eos # (Auto) 0.07 (0.00-0.50) K/uL Baso # (Auto) 0.01 (0.00-0.30) K/uL Abs Immat Gran (auto) 0.01 (0.00-0.30) K/uL Imm/Tot Granulo (auto) 0.1 % INR 0.92 (0.91-1.10) D-Dimer Quant (PE/DVT) 3.59 H (0.00-0.50) ug/ml Sodium 139 (135-149) mmol/L Potassium 3.9 (3.6-5.1) mmol/L Chloride 106 (96-114) mmol/L Carbon Dioxide 28 (20-32) mmol/L Anion Gap 5 L (7-15) mEq/L BUN 17 (7-30) mg/dL Creatinine 0.8 (0.5-1.5) mg/dL Estimated Creat Clear 53.74 Estimated GFR 86 ml/min Glucose 142 H (60-115) mg/dL Lactate 1.0 (0.5-1.9) mmol/L Calcium 8.9 (8.4-10.6) mg/dL Total Bilirubin 0.9 (0.1-1.5) mg/dL Direct Bilirubin 0.2 (0.0-0.5) mg/dL AST 33 (12-35) U/L ALT 23 (4-50) U/L Alkaline Phosphatase 75 (40-150) U/L C-Reactive Protein 1.4 H (0.5-1.0) mg/dL Total Protein 8.0 (6.0-8.3) g/dL Albumin 4.6 (3.3-5.0) g/dL TSH 3.780 (0.270-4.200) uIU/mL POC Troponin I 0.00 L (0.01-0.04) ng/ml Discharge Plan Discharge Clinical Impression: 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 Oxycodone if needed for severe uncontrolled pain as prescribed. Follow up on Saturday as planned with your primary doctor. Consider scheduling follow-up with Dr. Polk as well if recommended by primary care. Return at any time for new symptoms such as redness or significant pain in the arm, fevers, difficulty breathing, or other worsening. Prescriptions: No Action Ozempic 0.25 mg or 0.5 mg (2 mg/3 mL) pen injector subcut Patient Comments: pt is unclear of the dosing amlodipine 5 mg tablet 5 mg PO BID glimepiride 4 mg tablet 4 mg PO BID metformin 500 mg tablet extended release 24 hr 1,000 mg PO BID rosuvastatin 10 mg tablet 10 mg PO QPM insulin glargine [Lantus Solostar U-100 Insulin] 100 unit/mL (3 mL) insulin pen subcut carvedilol 6.25 mg tablet 3.125 mg PO BID Follow Up/Referrals: CRISTHIAN RICHTER DO [Primary Care Provider] - Stand Alone Forms: [employer] Info Instructions
[2024-03-23 12:29] LABS: Basophils Absolute Auto 0.01 K/uL (0.00-0.30); Basophils Percent Auto 0.1 % (0.0-3.0); Eosinophils Absolute Auto 0.07 K/uL (0.00-0.50); Eosinophils Percent Auto 0.9 % (0.0-7.0); Hematocrit 43.1 % (37.0-53.0); Immature Granulocytes Abs Auto 0.01 K/uL (0.00-0.30); Immature Granulocytes Pct Auto 0.1 %; Lymphocytes Percent Auto 8.4 % (20-44); Mean Corpuscular HGB Conc 33 gm/dL (32-36); Mean Corpuscular Hemoglobin 31 pg (26-34); Mean Corpuscular Volume 94 fL (80-100); Monocytes Percent Auto 6.8 % (0.0-11.0); Neutrophils Percent Auto 83.7 % (42.0-72.0); Platelet Count* 180 K/uL (140-440); RDW Coefficient of Variation % 13.3 % (11.5-15.5); Red Blood Count 4.57 m/uL (4.30-5.90); White Blood Count* 7.37 K/uL (4.50-11.00)
[2024-03-23 12:33] LABS: Slide Review Reflex No
[2024-03-23 12:43] LABS: Albumin* 4.6 g/dL (3.3-5.0); Chloride* 106 mmol/L (96-114); Sodium* 139 mmol/L (135-149)
[2024-03-23 12:44] LABS: Potassium* 3.9 mmol/L (3.6-5.1)
[2024-03-23 12:45] LABS: Creatinine* 0.8 mg/dL (0.5-1.5); Est. Creatinine Clearance* 53.74; Estimated Glomerular Filt Rate 86 ml/min; INR 0.92 (0.91-1.10); Prothrombin Time 12.9 Seconds
[2024-03-23 12:46] LABS: Alanine Aminotransferase* 23 U/L (4-50); Alkaline Phosphatase* 75 U/L (40-150); Anion Gap 5 mEq/L (7-15); Aspartate Amino Transferase* 33 U/L (12-35); Bilirubin Direct* 0.2 mg/dL (0.0-0.5); Bilirubin Total* 0.9 mg/dL (0.1-1.5); Blood Urea Nitrogen* 17 mg/dL (7-30); Carbon Dioxide* 28 mmol/L (20-32); Glucose* 142 mg/dL (60-115)
[2024-03-23 12:47] LABS: Calcium* 8.9 mg/dL (8.4-10.6); D Dimer Quantitative* 3.59 ug/ml (0.00-0.50)
[2024-03-23 12:49] LABS: C Reactive Protein* 1.4 mg/dL (0.5-1.0)
[2024-03-23] MEDS: MORPHINE 4 MG/ML INJ IVP (12:50)
--- NOTE | 2024-03-23 14:58 | CT_ITS ---
Patient: JESIKA CORDOVA Facility:?[facility] Patient ID:?[id number] Site Patient ID:?[id number]. Site :?[id number] Study:?CT-Chest W/ 95CC ISOVUE-370 PE PROTOCOL-03/23/2024 3:44:28 PM Ordering Physician:Yobani Astorga Final Report: INDICATION: Chest pain. Elevated D-dimer. Left arm swelling. TECHNIQUE: CT chest pulmonary angiogram acquired with 95 cc of Isovue 370 IV contrast. COMPARISON: None. FINDINGS: Cardiovascular structures: CT pulmonary angiogram demonstrates adequate opacification of the pulmonary arteries. No evidence of pulmonary embolus. Aortic atherosclerosis. Thoracic aorta is normal in caliber. Coronary artery calcifications. Heart size is within normal limits. Mediastinum and demond: Extensive lymphadenopathy in the paratracheal, prevascular and para-aortic regions. For example, a lower right paratracheal node on image 78 of series 4 measures 4.3 x 4.5 cm. Lymphadenopathy causes narrowing of the SVC. Lungs: No pneumothorax. Central airways are patent. Mild motion artifact with bilateral scarring and atelectasis. Lungs are otherwise clear. Pleura and pericardium: No effusions. Chest wall and axilla: Bilateral supraclavicular lymphadenopathy, left greater than right. No chest wall venous collaterals. Bones: Degenerative changes of the spine. Suspected bone island in the C7 vertebra. No acute or suspicious osseous abnormality. Upper abdomen: Bilateral retrocrural lymphadenopathy measuring up to 2 x 2.1 cm on image 166 of series 4. Cholelithiasis. Left renal cyst. IMPRESSION: 1. No evidence of pulmonary embolus. 2. Extensive lymphadenopathy involving the mediastinum, bilateral supraclavicular and retrocrural regions, consistent with malignancy/metastatic disease. Tissue sampling is recommended. At some point, CT of the abdomen and pelvis and/or PET-CT should be considered to evaluate for additional sites of involvement. 3. Mediastinal lymphadenopathy causes narrowing of the SVC. Within the limitations of contrast bolus timing, there is no evidence of definite occlusion. Dictated by Byron Alarcon MD @ 03/23/2024 4:21:59 PM Please note that all CT scans at this facility use dose modulation, iterative reconstruction, and/or weight-based dosing when appropriate to reduce radiation dose to as low as reasonably achievable. Dictated by: Byron Alarcon MD @ 03/23/2024 16:22:34 Signed by:?Byron Alarcon MD @03/23/2024 4:22:34 PM (Electronic Signature)
== END 2024-03-23 17:12 | disposition home or self-care (01) ==
PROVIDERS: Emergency Provider Emergency Medicine; PCP Student in an Organized Health Care Education/Training Program
DX: R22.32 Localized swelling, mass and lump, left upper limb (principal); C61 Malignant neoplasm of prostate; C77.1 Secondary and unspecified malignant neoplasm of intrathoracic lymph nodes
CPT/HCPCS: 36415; 71275; 73030; 80048; 80076; 83605; 84443; 84484; 85025; 85379; 85610; 86140; 93005; 93971; 96374; 99284; 99285; J2270; Q9967

== ENCOUNTER 2024-05-18 09:58 | Outpatient (CLI) | payer OTHER, SELFPAY | END 2024-05-18 09:59 | disposition home or self-care (01) | LOC: AMB 05-22 23:05 | PROVIDERS: PCP Student in an Organized Health Care Education/Training Program; Visit Provider Family Medicine | DX: R53.1 Weakness (principal) | CPT/HCPCS: A0998 ==

== ENCOUNTER 2024-10-17 15:12 | Outpatient (CLI) | payer OTHER, SELFPAY | END 2024-10-17 15:13 | disposition home or self-care (01) | LOC: AMB 10-18 13:08 | PROVIDERS: PCP Student in an Organized Health Care Education/Training Program; Visit Provider Internal Medicine | DX: R53.1 Weakness (principal) | CPT/HCPCS: A0998 ==

== ENCOUNTER 2024-12-15 17:24 | Outpatient (CLI) | payer MEDICARE, BC, SELFPAY | END 2024-12-15 17:25 | disposition home or self-care (01) | LOC: AMB 12-17 15:34 | PROVIDERS: PCP Student in an Organized Health Care Education/Training Program; Visit Provider Emergency Medicine Emergency Medical Services | DX: R53.1 Weakness (principal) | CPT/HCPCS: A0998 ==